=== PATIENT | male | born 1980 | race Caucasian/White ===

== ENCOUNTER → 2019-11-04 | Outpatient (CLI) | payer OTHER, SELFPAY ==
--- NOTE | 2019-11-01 17:00 | LES_PTH ---
PATIENT: QUINCY LLOYD LOC: [facility] U#:[id number] AGE/SX: 38/M ROOM: RE11/04/[address]: Dr. French Rouse MD : [id number] BED: DIS: 11/04/2019 SPEC #: [id number] RECD: 11/04/19 09:37 STATUS: DAVID ELY #: [id number] LALY: 11/01/19 17:[address]: French Rouse DEPT: SURGICAL PATHOLOGY RECD BY: Quincy Galloway Tissues: Skin of eyelid, NOS Procedures: Surgery Specimen Level IV HEADER OPERATION: Excision left upper lid PRE-OP DIAGNOSIS: Lesion x 7-8 years with physical changes 1 x 8 mm TISSUE SUBMITTED: Left upper lid lesion MICROSCOPIC DIAGNOSIS Left upper lid lesion, excision: A piece of skin with mild chronic inflammation and vascular ectasia. Negative for malignancy. SJ:laurie 11/05/19 MICROSCOPIC DESCRIPTION Slides are reviewed. GROSS DESCRIPTION Received in fixative is one container labeled with the patient's name and designated left upper lid. The specimen consists of a piece of seaman-white to brown skin measuring 0.7 x 0.2 x 0.1 cm. The specimen is inked and submitted entirely in one cassette. / SJ:laurie 11/04/19 TC:3 CPT: 83728
== END | disposition home or self-care (01) ==
LOC: LABSPEC 11:35
PROVIDERS: Referring Provider Ophthalmology; Visit Provider Ophthalmology
DX: L98.9 Disorder of the skin and subcutaneous tissue, unspecified (principal)
CPT/HCPCS: 88305

== ENCOUNTER → 2023-05-17 | Outpatient (CLI) | payer OTHER, SELFPAY ==
[2023-05-17 12:28] LABS: Absolute Lymphocyte Count 1.64 X10^3/uL (0.83-4.51); Absolute Neutrophil Count 4.1 X10^3/uL (2.0-7.7); Basophil# 0.05 X10^3/uL; Basophil% 0.7 % (0-1); Hematocrit 44.7 % (40-54); Hemoglobin 14.7 g/dL (13.0-16.5); Lymphocyte # 1.64 X10^3/ul (0.83-4.51); Lymphocyte % 24.4 % (19-41); Mean Corp Hgb Conc 32.9 g/dL (32-36); Mean Corpuscular Hgb 26.5 pg (27.0-32.0); Mean Corpuscular Volume 80.7 fL (80-94); Mean Platelet Vol. 12.2 fl (6.2-12.0); Monocyte# 0.66 X10^3/uL; Monocyte% 9.8 % (0-10); NRBC Flagged by Analyzer 0 % (0-5); Neutrophil # 4.14 X10^3/uL (2.7-7.7); Neutrophil % 61.5 % (47-70); Platelet Count 254 K/mm3 (150-450); RBC Distribution Width CV 13.6 % (11.6-14.6); RBC Distribution Width SD 39.5 fl (35.1-43.9); Red Blood Count 5.54 M/mm3 (4.6-6.2); White Blood Count 6.7 K/mm3 (4.4-11.0)
[2023-05-17 13:14] LABS: Erythrocyte Sedimentation Rate 3 mm/hr (0-20)
[2023-05-17 13:32] LABS: ALB/GLOB Ratio 1.3 RATIO (0.9-2.4); AST(SGOT) 59 U/L (15-37); Alanine Aminotransfer ALT/SGPT 113 U/L (16-61); Albumin, Serum 4.7 g/dL (3.2-5.0); Alkaline Phosphatase 72 U/L (45-117); Anion Gap 8 (5-15); BUN 15 mg/dL (7-18); BUN/Creat Ratio 13.8 RATIO (10-20); CRP < 2.90 mg/L (0.0-3.0); Calcium,Total 9.6 mg/dL (8.5-10.1); Chloride 106 mmol/L (98-107); Creatinine, Serum 1.09 mg/dL (0.70-1.30); EST Glomerular Filtration Rate 78 mL/min (>60); Est Glom Filt Rate - Afr Amer 94 mL/min (>60); Globulin 3.6 g/dL (2.2-4.2); Glucose 97 mg/dL (74-106); Potassium 3.3 mmol/L (3.5-5.1); Protein, Total 8.3 g/dL (6.4-8.2); Rheumatoid Factor < 10.0 IU/mL (<15); Sodium Level 139 mmol/L (136-145)
[2023-05-17 13:42] LABS: Hepatitis B Surface Antibody Non-Reactive; Hepatitis B Surface Antigen Non-Reactive (Nonreactive); Hepatitis C Antibody Non-Reactive (Nonreactive)
[2023-05-18 12:09] LABS: ANTINUCLEAR ANTIBODIES DIRECT Negative (Negative); CCP IgG Antibodies 5 units (0-19)
== END | disposition home or self-care (01) ==
PROVIDERS: PCP Physician Assistant; Referring Provider Internal Medicine Rheumatology; Visit Provider Internal Medicine Rheumatology
DX: M10.9 Gout, unspecified (principal); Z79.899 Other long term (current) drug therapy
CPT/HCPCS: 36415; 80053; 84550; 85025; 85652; 86038; 86140; 86200; 86431; 86706; 86803; 87340